=== PATIENT | female | born 1980 | race Caucasian/White ===

== ENCOUNTER → 2016-10-17 | Emergency (ER) | payer MEDICAID ==
[~2016-10-17] MED LIST: NIF10C PO; PREN-96 PO
== END | disposition left against medical advice (07) ==
LOC: ER 02:24
DX: J00 Acute nasopharyngitis [common cold] (principal); Z53.21 Procedure and treatment not carried out due to patient leaving prior to being seen by health care provider

== ENCOUNTER 2020-01-20 17:00 | Emergency (ER) | payer MEDICAID ==
[~2020-01-20] VITALS: Ht 160 cm; Wt 117.9 kg
[2020-01-20 17:19] VITALS: BP 137/73
[2020-01-20] MEDS ORDERED: ACETAMINOPHEN/CODEINE#3 (300/30mg) TAB PO ONE (17:45)
== END 2020-01-20 18:06 | disposition home or self-care (01) ==
LOC: ER 17:00
DX: M50.30 Other cervical disc degeneration, unspecified cervical region (principal); M54.12 Radiculopathy, cervical region; Z90.49 Acquired absence of other specified parts of digestive tract; Z79.899 Other long term (current) drug therapy
CPT/HCPCS: 72040